=== PATIENT | male | born 1930 | race Caucasian/White ===

== ENCOUNTER → 2016-06-15 | Outpatient (CLI) | payer MEDICARE, OTHER ==
[~2016-06-15] MED LIST: ASPIRIN 81MG TA81 MG PO; AVODART0.5 MG PO; CARDURA2 MG PO; DAILY VALUE1 EACH PO; DIOVAN80 MG PO; FINASTERIDE5 MG PO; OXYBUTYNIN5 MG PO; SIMVASTATIN5 MG PO
[2016-06-15 21:35] LABS: BUN 32 mg/dL (7-18)
[2016-06-15 22:10] LABS: GFR (ESTIMATED) 57 ML/MIN (>60)
== END ==
LOC: LAB 14:22
PROVIDERS: Family Medicine
DX: R93.8 Abnormal findings on diagnostic imaging of other specified body structures (principal)